=== PATIENT | female | born 1945 | race Caucasian/White ===

== ENCOUNTER → 2018-01-05 13:18 | Outpatient (CLI) | payer MEDICARE, SELFPAY ==
[2018-01-05 14:39] LABS: Alanine Aminotransferase 25 U/L (12-78); Albumin Level 3.9 gm/dL (3.4-5.0); Albumin/Globulin Ratio 1.3 (1.1-1.8); Alkaline Phosphatase 57 U/L (46-116); Anion Gap 11.2 mEq/L (5-15); Aspartate Amino Transferase 15 U/L (15-37); Bilirubin,Total 0.8 mg/dL (0.2-1.0); Blood Urea Nitrogen 21 mg/dL (7-18); Calcium 9.1 mg/dL (8.5-10.1); Carbon Dioxide 30 mmol/L (21.0-32.0); Chloride 104 mmol/L (98-107); Chol/HDL Ratio 5.3 (1-3.5); Cholesterol 291 mg/dL (140-200); Creatinine,Serum 1.22 mg/dL (0.55-1.02); Estimated Glomerular Filt Rate 43 ml/min (>60); Free T4 (Free Thyroxine) 0.79 ng/dl (0.76-1.46); GFR (African American) 52 ML/MIN (>60); Globulin 2.9 gm/dl (1.3-3.2); Glucose 106 mg/dL (74-106); HDL Cholesterol 55 mg/dL (29-89); LDL Cholesterol 211 mg/dL (0-130); Potassium 5.2 mmoL/L (3.5-5.1); Sodium 140 mmol/L (136-145); Thyroid Stimulating Hormone 3.49 uIU/ml (0.358-3.740); Total Protein,Serum 6.8 gm/dL (6.4-8.2); Triglycerides 125 mg/dL (30-200); VLDL Cholesterol 25 mg/dL (0-40)
[2018-01-05 14:53] LABS: Basophils # 0.1 K/mm3 (0-0.2); Basophils % 1.2 % (0.1-2.0); Eosinophils # 0.2 K/mm3 (0.0-0.4); Eosinophils % 3.7 % (0.1-12.0); Hematocrit 39.9 % (37.0-47.0); Hemoglobin 12.7 g/dL (12.2-16.2); Lymphocytes # 1.5 K/mm3 (0.7-4.5); Lymphocytes % 30.3 K/mm3 (10-50); Mean Corpuscular HGB Conc 31.9 g/dL (31.8-35.4); Mean Corpuscular Hemoglobin 28.1 pg (27.0-31.2); Mean Corpuscular Volume 88.2 fl (81-99); Mean Platelet Volume 7.8 fl (7.4-10.4); Monocytes # 0.4 K/mm3 (0.1-1.0); Monocytes % 6.9 % (1.7-9.3); Neutrophils # 2.9 K/mm3 (1.8-7.8); Neutrophils % 57.8 % (37.0-80.0); Platelet Count 220 K/mm3 (142-424); Red Blood Count 4.52 M/mm3 (4.20-5.40); Red Cell Distribution Width 13.2 % (11.5-17.5)
== END ==
PROVIDERS: Visit Provider Nurse Practitioner Family
DX: R53.83 Other fatigue (principal); E78.5 Hyperlipidemia, unspecified; N89.8 Other specified noninflammatory disorders of vagina
CPT/HCPCS: 80053; 80061; 84439; 84443; 85025; 87210

== ENCOUNTER → 2018-02-20 11:03 | Outpatient (REF) | payer MEDICARE, SELFPAY ==
[2018-02-20 14:10] LABS: Amphetamine/Metha Screen,Urine Negative ng/mL (<1000); Barbiturates Screen,Urine Negative ng/mL (<200); Benzodiazepines Screen,Urine Negative ng/mL (200); Cannabinoid Screen,Urine Negative ng/mL (<50); Cocaine Screen,Urine Negative ng/g (<300); Methadone Screen,Urine Negative ng/mL (<300); Opiate Screen,Urine Positive ng/mL (<300); Phencyclidine Screen,Urine Negative ng/mL (<25)
== END ==
LOC: LAB 11:03
PROVIDERS: Visit Provider Emergency Medicine
DX: Z79.899 Other long term (current) drug therapy (principal)
CPT/HCPCS: 80305

== ENCOUNTER → 2018-04-26 14:51 | Outpatient (CLI) | payer MEDICARE, SELFPAY | PROVIDERS: Visit Provider Physician Assistant | DX: R00.2 Palpitations (principal); I10 Essential (primary) hypertension | CPT/HCPCS: 93005 ==

== ENCOUNTER → 2018-05-04 07:57 | Outpatient (CLI) | payer MEDICARE, SELFPAY ==
[2018-05-04 08:02] LABS: Microscopic, Urine URINE MICROSCOPIC (MICROSCOPIC)
[2018-05-04 10:39] LABS: Appearance,Urine CLEAR (Clear); Bilirubin,Urine Negative (Negative); Blood, Urine Negative (Negative); Color,Urine YELLOW (Yellow); Glucose,Urine (UA) Negative (Negative); Ketones,Urine Negative (Negative); Leukocyte Esterase,Urine Negative (Negative); Nitrate,Urine Negative (Negative); Protein,Urine Negative (Negative); Specific Gravity, Urine 1.025 (1.005-1.030); Urobilinogen,Urine 0.2 EU/dl (0.2)
[2018-05-04 10:50] LABS: Albumin Level 3.7 gm/dL (3.4-5.0); Blood Urea Nitrogen 20 mg/dL (7-18); Carbon Dioxide 26 mmol/L (21.0-32.0); Chloride 105 mmol/L (98-107); Creatinine,Serum 1.07 mg/dL (0.55-1.02); Estimated Glomerular Filt Rate 50 ml/min (>60); GFR (African American) 61 ML/MIN (>60); Glucose 136 mg/dL (74-106); Phosphorous 3.9 mg/dL (2.4-4.9); Sodium 140 mmol/L (136-145)
[2018-05-04 11:01] LABS: WBC,Urine Occasional #/hpf (0-3)
[2018-05-04 11:02] LABS: Bacteria,Urine 2+ /lpf
[2018-05-04 11:18] LABS: Creatinine,Urine Random 182 mg/dL (20-320); Total Protein,Urine Random 46.1 mg/dL (0.0-11.9)
[2018-05-05 18:12] LABS: Parathyroid Hormone Intact 38 pg/mL (15-65); Vitamin D 25 Hydroxy 57.9 ng/mL (30.0-100.0)
[2018-05-06 18:29] LABS: Calcium, Ionized 5.4 mg/dL (4.5-5.6)
== END ==
PROVIDERS: Visit Provider Internal Medicine Nephrology
DX: N18.2 Chronic kidney disease, stage 2 (mild) (principal); R82.90 Unspecified abnormal findings in urine
CPT/HCPCS: 36415; 80069; 81001; 82330; 82570; 82652; 83970; 84155; 87086

== ENCOUNTER → 2018-05-07 09:08 | Outpatient (CLI) | payer MEDICARE, SELFPAY ==
--- NOTE | 2018-05-07 | CA_ITS ---
PROCEDURE: 2-D M-mode and color Doppler study INDICATIONS FOR THE TEST: Chest pain+ COPD Heart Murmur+ Tobacco Smoking Palpitations+ Fatigue Syncope Edema Hypertension+Diabetes Mellitus Rheumatic Fever SOB+SANCHEZ+Obesity Hyperlipidemia+ Family History HD+ Additional History dizziness PATIENT INFORMATION HEIGHT: 66 WEIGHT: 146 GENDER: Female B/P: 130/82 2-D/M-MODE INTERPRETATION: 2-D MEASUREMENTS OBSERVED VALUES IN CMS Right Ventricular Dimension (RVDd) 1.7 Interventricular Septum (Thickness)(IVsd) 1.1 Left Ventricular Internal Dimensions(LVIDd) 4.6 Left Ventricular Posterior Wall (Thickness)(LVPWd) 1.1 Aortic Root 2.0 Aortic Cusp Separation 1.5 Left Atrial Dimensions (LAD) 3.4 2D 1. Left atrium is mildly enlarged, left ventricle is normal size, mild concentric left ventricular hypertrophy, visually estimated ejection fraction 55% with no obvious regional wall motion abnormality. 2. The right atrium and right ventricle are normal size and contractility. 3. The aortic valve is minimally thickened and fibrosed. 4. The mitral and tricuspid valve leaflets are minimally thickened. 5. The pulmonic valve is poorly visualized. 6. No significant pericardial effusion noted. DOPPLER INTERROGATION: Doppler interrogation of the aortic, mitral and tricuspid valvular presence of mild aortic, mild mitral and tricuspid regurgitation, tricuspid and jet velocity insufficient for calculation of the right ventricular systolic pressure, diastolic parameters are inconclusive. CONCLUSION: 1. Mildly enlarged left atrium, normal left ventricular size, mild concentric left ventricular hypertrophy, visually estimated ejection fraction 55% with no signal wall motion abnormality. 2. Mild aortic, mild mitral and tricuspid regurgitation 3. No significant pericardial effusion noted.
== END ==
PROVIDERS: Family Provider Emergency Medicine; PCP Internal Medicine Adolescent Medicine; Visit Provider Physician Assistant
DX: R01.1 Cardiac murmur, unspecified (principal); R00.2 Palpitations; I10 Essential (primary) hypertension
CPT/HCPCS: 93005; 93306

== ENCOUNTER → 2018-05-07 13:33 | Outpatient (POV) | payer MEDICARE, SELFPAY | PROVIDERS: Family Provider Emergency Medicine; PCP Internal Medicine Adolescent Medicine; Visit Provider Internal Medicine Nephrology | DX: Z00.00 Encounter for general adult medical examination without abnormal findings (principal) ==

== ENCOUNTER → 2018-05-10 10:10 | Outpatient (CLI) | payer MEDICARE, SELFPAY ==
--- NOTE | 2018-05-10 10:15 | MM_ITS ---
MM Dig screening mamm BI w/CAD CAD Screening COMPARISON: Digital mammograms 04/17/2015 and 12/06/2012 INDICATION: There is a history of breast cancer patient maternal cousin diagnosed before menopause. TECHNIQUE: Standard CC and MLO images were obtained. R2 CAD reviewed. FINDINGS: Prominent diffuse fibroglandular densities are seen throughout both breasts. There are multiple scattered benign-appearing calcifications in each breast. There are mole markers on each breast. There is a small asymmetric density inner quadrant left breast. This was seen previously but appears somewhat more prominent on the current exam. Recommend the patient return for spot compression views and ultrasound for additional evaluation. IMPRESSION: The dense parenchymal pattern with possible developing asymmetric lesion left breast BI-RADS Category: 0 Need Additional Imaging Evaluation RECOMMENDED FOLLOW-UP: IMM - IMMEDIATE FOLLOW-UP RECOMMENDED (A letter has been sent to the patient regarding results of the study.)
--- NOTE | 2018-05-10 10:16 | XR_ITS ---
XR DEXA axial skeleton HISTORY: ITS.REASON: POST MENOPAUSAL ORDERING PHYSICIAN: Silvio Marsh MD PATIENT AGE: 72 years COMPARISON: None FINDINGS: The BMD measured at the left femoral neck is 0.963 g/cm squared with a T score of -0.5. This is considered normal according to the World Health Organization criteria. Fracture risk is low. Treatment is advised. L1-L4 density has a T score of 0.7 which is normal IMPRESSION: Normal bone density. Recommend follow-up exam May 2020
== END ==
PROVIDERS: Family Provider Emergency Medicine; PCP Internal Medicine Adolescent Medicine; Visit Provider Internal Medicine Adolescent Medicine
DX: Z12.31 Encounter for screening mammogram for malignant neoplasm of breast (principal); Z13.820 Encounter for screening for osteoporosis; Z78.0 Asymptomatic menopausal state
CPT/HCPCS: 77067; 77080

== ENCOUNTER → 2018-05-25 12:59 | Outpatient (CLI) | payer MEDICARE, SELFPAY ==
--- NOTE | 2018-05-25 13:05 | MM_ITS ---
MM Dig mamm BI DX w/CAD COMPARISON: Digital bilateral mammograms with CAD 05/10/2008 INDICATION: Possible developing asymmetric density left breast TECHNIQUE: Spot compression MLO and CC views and 90 degrees lateral view FINDINGS: Spot view show that the lesion does not press out and has definitely irregular borders. A few scattered benign-appearing calcifications throughout the breast. Ultrasound exam performed same date showed solid lesion with slightly irregular borders. IMPRESSION: Suspicious asymmetric density left breast along with slightly suspicious findings on targeted ultrasound I believe biopsy is indicated with either stereotactic or ultrasound guidance BI-RADS Category: 4 Suspicious Abnormality-Biopsy Considered RECOMMENDED FOLLOW-UP: BIO - BIOPSY RECOMMENDED (A letter has been sent to the patient regarding results of the study.)
--- NOTE | 2018-05-25 13:06 | US_ITS ---
US breast LT complete COMPARISON: Problem-solving views left breast same date HISTORY: Somewhat suspicious asymmetric density left breast TECHNIQUE: Targeted ultrasound lower inner quadrant FINDINGS: Is a hypoechoic solid lesion at the 8:00 position outer breast measuring 0.4 x 0.5 x 0.2 cm. And shows slightly irregular borders in the ultrasound appearance combined with the irregular asymmetric density on the spot mammogram views is somewhat worrisome and I would recommend biopsy of this lesion which can probably be performed with ultrasound guidance. There are couple normal-appearing nodes in the axilla. IMPRESSION: Suspicious irregular asymmetric lesion on mammogram from to be solid lesion with somewhat irregular borders on ultrasound and recommend follow-up biopsy
== END ==
PROVIDERS: Family Provider Emergency Medicine; PCP Internal Medicine Adolescent Medicine; Visit Provider Internal Medicine Adolescent Medicine
DX: R92.8 Other abnormal and inconclusive findings on diagnostic imaging of breast (principal)
CPT/HCPCS: 76641; 77065

== ENCOUNTER → 2018-06-01 12:01 | Outpatient (CLI) | payer MEDICARE, SELFPAY ==
--- NOTE | 2018-06-01 12:11 | XR_ITS ---
XR KUB HISTORY: ITS.REASON: IBS WITH BOTH CONSTIPATION AND DIARRHEA ORDERING PHYSICIAN: Silvio Marsh MD PATIENT AGE: 72 years COMPARISON: None FINDINGS: There is a moderate amount stool in ascending colon and transverse colon and splenic flexure. There is minimal scattered small bowel gas upper abdomen.. No abnormal calcifications are evident. No obvious renal or ureteral calculi.. No acute bony anomalies evident. There are surgical clips right upper quadrant probably from previous cholecystectomy. IMPRESSION: Negative KUB, no acute finding
== END ==
PROVIDERS: PCP Internal Medicine Adolescent Medicine; Visit Provider Internal Medicine Adolescent Medicine
DX: K58.2 Mixed irritable bowel syndrome (principal)
CPT/HCPCS: 74018

== ENCOUNTER → 2018-06-11 13:24 | Outpatient (CLI) | payer MEDICARE, SELFPAY ==
--- NOTE | 2018-06-11 13:31 | XR_ITS ---
XR knee LT 3V HISTORY: ITS.REASON: LEFT KNEE PAIN ORDERING PHYSICIAN: Simran Crowley PATIENT AGE: 73 years COMPARISON: None FINDINGS: Mild osteoarthritic changes are present at the medial compartment and patellofemoral joint. There is mild chondrocalcinosis of the menisci. No fracture or dislocation. No lytic or blastic change. IMPRESSION: Mild osteoarthritis with chondrocalcinosis
== END ==
PROVIDERS: PCP Nurse Practitioner Family; Visit Provider Nurse Practitioner Family
DX: M25.562 Pain in left knee (principal)
CPT/HCPCS: 73562

== ENCOUNTER → 2018-06-12 08:51 | Outpatient (CLI) | payer MEDICARE, SELFPAY ==
--- NOTE | 2018-06-12 09:30 | US_ITS ---
FNA w guidance, US organ site (breast) HISTORY: Previous abnormal mammogram and ultrasound demonstrated a suspicious hypoechoic nodule at 8:00 along with asymmetric mammogram density in the medial left breast. ITS.REASON: ABNORMAL MAMM ORDERING PHYSICIAN: Silvio Marsh MD PATIENT AGE: 73 years COMPARISON: 05/25/2018 TECHNIQUE: Following obtaining informed consent using aseptic technique and local anesthesia with 1% buffered lidocaine 21-gauge needle was inserted into the nodule of interest and nearly completely aspirated. Only minimal amount fluid was obtained. This was sent to cytology was nondiagnostic. The patient tolerated the procedure well without evidence of immediate complications. Additional views of left breast show the asymmetric density appear to at least partially compress out and is not felt to be significantly changed from an older exam of 2012. IMPRESSION: Sonographic abnormality corresponding to a cyst which was nearly completely aspirated. Recommendations: 6 month mammographic and sonographic follow-up regarding asymmetric density in the left breast
--- NOTE | 2018-06-12 09:30 | MM_ITS ---
MM Dig mamm DX unilat LT CAD INDICATION: Follow-up abnormal mammogram of ORDERING PHYSICIAN: Silvio Marsh MD PATIENT AGE: 73 years COMPARISON: None TECHNIQUE: Problem-solving views left breast FINDINGS: There is heterogeneously dense fibroglandular tissue which decreases the sensitivity of mammography. Asymmetric density is once again noted involving the medial aspect of the left breast. There is some interspersed fat density at this region along with some benign-appearing calcifications. The density is less apparent on the rolled views and is not readily identified is a true nodule on the orthogonal and may represent overlapping fibroglandular tissue. This was similar in appearance compared to older study of 12/06/2012. The patient has a left breast nodule as seen on ultrasound which was subsequently aspirated in the 8:00 region of the left breast. This could contribute to the mammographic abnormality as well. IMPRESSION: Probably benign findings medial left breast. Asymmetric density is felt to represent overlapping fibroglandular tissue along with small left breast cyst. Recommend 6 month mammographic and sonographic follow-up. Also recommend correlation with patient's cytology from the ultrasound-guided FNA BI-RADS Category: 3 Benign Finding Short Term Follow-up RECOMMENDED FOLLOW-UP: 6M - 6 MONTH FOLLOW-UP (A letter has been sent to the patient regarding results of the study.)
== END ==
PROVIDERS: Family Provider Emergency Medicine; PCP Nurse Practitioner Family; Visit Provider Internal Medicine Adolescent Medicine
DX: R92.8 Other abnormal and inconclusive findings on diagnostic imaging of breast (principal); N63.24 Unspecified lump in the left breast, lower inner quadrant
CPT/HCPCS: 10022; 76942; 77065; 88173

== ENCOUNTER → 2018-06-29 11:07 | Outpatient (CLI) | payer MEDICARE, SELFPAY ==
--- NOTE | 2018-06-29 | XR_ITS ---
XR hand RT min 3V HISTORY: Pain ORDERING PHYSICIAN: Ijeoma Lauren MD PATIENT AGE: 73 years COMPARISON: None FINDINGS: Osteoarthritic changes are present at the DIP joints of the second through fourth finger as well as the interphalangeal joint of the thumb. There are multiple cystic areas of the carpal bones involving the scaphoid, lunate, capitate, and radial styloid process. No fracture or dislocation. IMPRESSION: 1. Osteoarthritis. 2. Multiple small cystic areas of the carpal bones of clinical significance. These are fairly well-circumscribed and measure up to 5 mm
--- NOTE | 2018-06-29 11:15 | XR_ITS ---
XR hand LT min 3V HISTORY: Pain ITS.REASON: PT HAS LUPUS..PAIN ORDERING PHYSICIAN: Ijeoma Lauren MD PATIENT AGE: 73 years COMPARISON: None FINDINGS: Osteoarthritic changes involving the DIP joint of the second through fifth digits worse at the third digit with decrease in the joint space and osteophyte formation. No fracture or dislocation evident. There are multiple cystic lesions of the carpal bones with greatest involvement of the scaphoid with cystic areas measuring up to 6 mm. Prominent cystic area is present involving the distal radius at 12 mm. IMPRESSION: 1. Osteoarthritis. 2. Multiple well-defined lucent lesions. Differential diagnosis would include multiple bone cyst, brown tumors, in chondromas, or metastatic disease
--- NOTE | 2018-06-29 11:16 | XR_ITS ---
XR foot RT min 3V HISTORY: Pain ITS.REASON: PT HAD LUPUS..PAIN ALL OVER ORDERING PHYSICIAN: Ijoema Lauren MD PATIENT AGE: 73 years COMPARISON: None FINDINGS: No fracture or dislocation. No lytic or blastic change. There is normal mineralization.. The joint spaces are well-preserved. No significant degenerative/arthritic changes. No erosive changes evident. IMPRESSION: Negative, no acute finding
--- NOTE | 2018-06-29 11:16 | XR_ITS ---
XR foot LT min 3V HISTORY: Pain ORDERING PHYSICIAN: Ijeoma Lauren MD PATIENT AGE: 73 years COMPARISON: None FINDINGS: No fracture or dislocation. No lytic or blastic change. There is normal mineralization.. The joint spaces are well-preserved. No significant degenerative/arthritic changes. There are 2 small cystic areas in the proximal and medial aspect of the proximal phalanx of the third toe. These are nonspecific and measure approximately 2 mm and are questioned clinical significance. Otherwise negative. IMPRESSION: No acute finding. 2 small benign-appearing cystic areas proximal phalanx third toe
[2018-06-29 11:47] LABS: Microscopic, Urine URINE MICROSCOPIC (MICROSCOPIC)
[2018-06-29 12:48] LABS: Appearance,Urine CLEAR (Clear); Basophils # 0.1 K/mm3 (0-0.2); Basophils % 1.8 % (0.1-2.0); Blood, Urine Negative (Negative); Color,Urine YELLOW (Yellow); Eosinophils # 0.2 K/mm3 (0.0-0.4); Eosinophils % 4.2 % (0.1-12.0); Glucose,Urine (UA) Negative (Negative); Hematocrit 40.4 % (37.0-47.0); Hemoglobin 13.2 g/dL (12.2-16.2); Ketones,Urine TRACE (Negative); Leukocyte Esterase,Urine 2+ (Negative); Lymphocytes # 1.6 K/mm3 (0.7-4.5); Lymphocytes % 33.6 K/mm3 (10-50); Mean Corpuscular HGB Conc 32.6 g/dL (31.8-35.4); Mean Corpuscular Hemoglobin 28.2 pg (27.0-31.2); Mean Corpuscular Volume 86.5 fl (81-99); Mean Platelet Volume 6.8 fl (7.4-10.4); Monocytes # 0.4 K/mm3 (0.1-1.0); Monocytes % 8.3 % (1.7-9.3); Neutrophils # 2.5 K/mm3 (1.8-7.8); Neutrophils % 52.1 % (37.0-80.0); Nitrate,Urine Negative (Negative); Platelet Count 253 K/mm3 (142-424); Protein,Urine TRACE (Negative); Red Blood Count 4.67 M/mm3 (4.20-5.40); Specific Gravity, Urine >= 1.030 (1.005-1.030); White Blood Count 4.9 K/mm3 (4.8-10.8)
[2018-06-29 12:55] LABS: Bilirubin,Urine 1+ (Negative)
[2018-06-29 13:36] LABS: Bacteria,Urine 2+ /lpf; Mucus,Urine 1+ /lpf; Squamous Epithelial Cell,Urine 20-50 #/hpf (0-5); WBC,Urine 20-50 #/hpf (0-3)
[2018-06-29 14:11] LABS: Alanine Aminotransferase 23 U/L (12-78); Albumin Level 4.1 gm/dL (3.4-5.0); Albumin/Globulin Ratio 1.2 (1.1-1.8); Alkaline Phosphatase 83 U/L (46-116); Anion Gap 15.4 mEq/L (5-15); Aspartate Amino Transferase 15 U/L (15-37); Bilirubin,Total 0.8 mg/dL (0.2-1.0); Blood Urea Nitrogen 19 mg/dL (7-18); Calcium 9.3 mg/dL (8.5-10.1); Carbon Dioxide 27 mmol/L (21.0-32.0); Chloride 102 mmol/L (98-107); Creatinine,Serum 1.22 mg/dL (0.55-1.02); Estimated Glomerular Filt Rate 43 ml/min (>60); GFR (African American) 52 ML/MIN (>60); Globulin 3.3 gm/dl (1.3-3.2); Glucose 106 mg/dL (74-106); Potassium 4.4 mmoL/L (3.5-5.1); Sodium 140 mmol/L (136-145); Total Protein,Serum 7.4 gm/dL (6.4-8.2)
[2018-06-29 14:13] LABS: Total Protein,Urine Random 85.8 mg/dL (0.0-11.9)
[2018-06-29 14:30] LABS: Creatinine,Urine Random 347 mg/dL (20-320)
[2018-07-01 16:09] LABS: PTT-LA 49.6 sec (0.0-51.9)
[2018-07-02 08:19] LABS: dRVVT Mix 39.2 sec (0.0-47.0)
[2018-07-02 12:55] LABS: Complement C3 137 mg/dL (82-167); Vitamin D 25 Hydroxy 62.1 ng/mL (30.0-100.0)
[2018-07-02 12:56] LABS: dRVVT 48.4 sec (0.0-47.0)
[2018-07-04 08:45] LABS: Anti-Cardiolipin Antibody IgG <9 GPL U/mL (0-14); Anti-DNA (DS) Ab Qn <1 IU/mL (0-9); Lupus Reflex Interpretation Comment: (.)
[2018-07-04 14:48] LABS: Beta-2 Glycoprotein I Ab, IgA <9 (0-25); Beta-2 Glycoprotein I Ab, IgG <9 (0-20)
[2018-07-04 14:49] LABS: Antinuclear Antibodies, IFA Positive (.); Beta-2 Glycoprotein I Ab, IgM <9 (0-32)
== END ==
PROVIDERS: PCP Internal Medicine Adolescent Medicine; Visit Provider Internal Medicine Rheumatology
DX: M32.10 Systemic lupus erythematosus, organ or system involvement unspecified (principal); R82.90 Unspecified abnormal findings in urine
CPT/HCPCS: 36415; 73130; 73630; 80053; 81001; 82570; 82652; 84155; 84443; 85025; 85613; 86038; 86146; 86147; 86161; 86225; 86235; 87086; 87088; 87186

== ENCOUNTER → 2018-07-23 12:56 | Outpatient (POV) | payer MEDICARE, SELFPAY | PROVIDERS: Visit Provider Nurse Practitioner Acute Care | DX: Z00.00 Encounter for general adult medical examination without abnormal findings (principal) ==

== ENCOUNTER → 2018-08-13 11:36 | Outpatient (CLI) | payer MEDICARE, SELFPAY ==
[2018-08-13 11:55] LABS: Alanine Aminotransferase 18 U/L (12-78); Albumin Level 3.6 gm/dL (3.4-5.0); Albumin/Globulin Ratio 1.1 (1.1-1.8); Alkaline Phosphatase 68 U/L (46-116); Anion Gap 10.8 mEq/L (5-15); Aspartate Amino Transferase 15 U/L (15-37); Bilirubin,Total 0.6 mg/dL (0.2-1.0); Blood Urea Nitrogen 17 mg/dL (7-18); Calcium 9.1 mg/dL (8.5-10.1); Carbon Dioxide 28 mmol/L (21.0-32.0); Chloride 107 mmol/L (98-107); Chol/HDL Ratio 2.7 (1-3.5); Cholesterol 149 mg/dL (140-200); Creatine Kinase 103 U/L (26-192); Estimated Glomerular Filt Rate 40 ml/min (>60); GFR (African American) 48 ML/MIN (>60); Globulin 3.4 gm/dl (1.3-3.2); Glucose 97 mg/dL (74-106); HDL Cholesterol 56 mg/dL (29-89); LDL Cholesterol 79 mg/dL (0-130); Potassium 4.8 mmoL/L (3.5-5.1); Sodium 141 mmol/L (136-145); Triglycerides 69 mg/dL (30-200); VLDL Cholesterol 14 mg/dL (0-40)
== END ==
PROVIDERS: PCP Physician Assistant; Visit Provider Physician Assistant
DX: E78.5 Hyperlipidemia, unspecified (principal)
CPT/HCPCS: 36415; 80053; 80061; 82550

== ENCOUNTER → 2018-12-28 10:27 | Outpatient (CLI) | payer MEDICARE, SELFPAY ==
--- NOTE | 2018-12-28 10:40 | XR_ITS ---
XR chest 2V HISTORY: ITS.REASON: COUGH, CHILLS, FEVER ORDERING PHYSICIAN: Simran Crowley PATIENT AGE: 73 years COMPARISON: 02/29/2016 FINDINGS: The cardiomediastinal silhouette and pulmonary vascularity are within normal limits. There is consolidation in the right upper lobe consistent with pneumonia. No effusions are evident. No acute bony findings. IMPRESSION: Right upper lobe pneumonia
[2018-12-28 10:57] LABS: Basophils % 0.6 % (0.1-2.0); Eosinophils # 0.1 K/mm3 (0.0-0.4); Eosinophils % 2.1 % (0.1-12.0); Hematocrit 34.2 % (37.0-47.0); Hemoglobin 11.1 g/dL (12.2-16.2); Lymphocytes # 1.3 K/mm3 (0.7-4.5); Lymphocytes % 23.6 % (10-50); Mean Corpuscular HGB Conc 32.6 g/dL (31.8-35.4); Mean Corpuscular Hemoglobin 27.9 pg (27.0-31.2); Mean Corpuscular Volume 85.6 fl (81-99); Mean Platelet Volume 7.2 fl (7.4-10.4); Monocytes # 0.3 K/mm3 (0.1-1.0); Monocytes % 5.2 % (1.7-9.3); Neutrophils # 3.8 K/mm3 (1.8-7.8); Neutrophils % 68.5 % (37.0-80.0); Platelet Count 216 K/mm3 (142-424); Red Blood Count 3.99 M/mm3 (4.20-5.40); Red Cell Distribution Width 13.4 % (11.5-17.5); White Blood Count 5.5 K/mm3 (4.8-10.8)
[2018-12-28 11:46] LABS: Alanine Aminotransferase 20 U/L (12-78); Albumin Level 3.4 gm/dL (3.4-5.0); Alkaline Phosphatase 67 U/L (46-116); Aspartate Amino Transferase 15 U/L (15-37); Bilirubin,Total 0.6 mg/dL (0.2-1.0); Blood Urea Nitrogen 14 mg/dL (7-18); Carbon Dioxide 28 mmol/L (21.0-32.0); Chloride 104 mmol/L (98-107); Creatinine,Serum 1.24 mg/dL (0.55-1.02); Estimated Glomerular Filt Rate 42 ml/min (>60); GFR (African American) 51 ML/MIN (>60); Globulin 3.3 gm/dl (1.3-3.2); Glucose 101 mg/dL (74-106); Sodium 139 mmol/L (136-145); Total Protein,Serum 6.7 gm/dL (6.4-8.2)
== END ==
PROVIDERS: Visit Provider Nurse Practitioner Family
DX: R05 Cough (principal); R50.9 Fever, unspecified
CPT/HCPCS: 36415; 71046; 80053; 85025

== ENCOUNTER → 2019-03-21 12:27 | Outpatient (CLI) | payer MEDICARE, SELFPAY ==
[2019-03-21 12:37] LABS: Basophils % 0.4 % (0.1-2.0); Eosinophils % 0.4 % (0.1-12.0); Hematocrit 34.4 % (37.0-47.0); Hemoglobin 11.2 g/dL (12.2-16.2); Lymphocytes # 0.8 K/mm3 (0.7-4.5); Lymphocytes % 8.7 % (10-50); Mean Corpuscular HGB Conc 32.7 g/dL (31.8-35.4); Mean Corpuscular Hemoglobin 27.2 pg (27.0-31.2); Mean Corpuscular Volume 83.3 fl (81-99); Mean Platelet Volume 8.5 fl (7.4-10.4); Monocytes # 0.7 K/mm3 (0.1-1.0); Monocytes % 7.8 % (1.7-9.3); Neutrophils # 7.6 K/mm3 (1.8-7.8); Neutrophils % 82.7 % (37.0-80.0); Platelet Count 178 K/mm3 (142-424); Red Blood Count 4.13 M/mm3 (4.20-5.40); Red Cell Distribution Width 13.4 % (11.5-17.5); White Blood Count 9.2 K/mm3 (4.8-10.8)
[2019-03-21 12:50] LABS: Alanine Aminotransferase 20 U/L (12-78); Albumin Level 3.4 gm/dL (3.4-5.0); Albumin/Globulin Ratio 0.9 (1.1-1.8); Alkaline Phosphatase 57 U/L (46-116); Anion Gap 12.3 mEq/L (5-15); Aspartate Amino Transferase 11 U/L (15-37); Bilirubin,Total 1.3 mg/dL (0.2-1.0); Blood Urea Nitrogen 17 mg/dL (7-18); Carbon Dioxide 25 mmol/L (21.0-32.0); Chloride 97 mmol/L (98-107); Creatinine,Serum 1.38 mg/dL (0.55-1.02); Estimated Glomerular Filt Rate 37 ml/min (>60); GFR (African American) 45 ML/MIN (>60); Globulin 3.9 gm/dl (1.3-3.2); Glucose 122 mg/dL (74-106); Potassium 4.3 mmoL/L (3.5-5.1); Sodium 130 mmol/L (136-145); Total Protein,Serum 7.3 gm/dL (6.4-8.2)
== END ==
PROVIDERS: Visit Provider Nurse Practitioner Family
DX: R53.1 Weakness (principal)
CPT/HCPCS: 36415; 80053; 85025

== ENCOUNTER 2019-03-22 17:29 | Inpatient (IN) ==
--- NOTE | 2019-03-22 18:23 | Emergency Department Note ---
ED Disposition Clinical Impression: Bilateral pneumonia, Multiple falls, Facial contusion Disposition: Admitted As Inpatient Condition on Discharge: Fair Referrals: Silvio Marsh MD [Primary Care Provider] - Time of Disposition: 19:38 - Critical Care Critical Care Time: No Attestation: On 03/22/19, the high probability of a clinically significant, sudden or life threatening deterioration of the following system(s) required my full and direct attention, intervention and personal management. The time I documented below is in addition to time spent performing reported procedures but includes the following listed in this critical care notation. Medical Decision Making - Medical Records Medical records reviewed: Yes: I reviewed the patient's medical records. - Toro Inquiry Pt receiving controlled substance: No Toro was queried for this patient: No Vital Signs: 03/22/19 17:28 03/22/19 18:14 Temperature 98.2 F Temperature Source Oral Pulse Rate [Right Radial] 70 67 Respiratory Rate 16 Blood Pressure [Right Arm] 135/61 121/91 H Blood Pressure Mean [Right Arm] 85 101 Blood Pressure Source [Right Arm] Automatic Cuff Blood Pressure Position [Right Arm] Sitting Sitting 02 Sat by Pulse Oximetry 94 L 93 L Oxygen Delivery Method Room Air Room Air - Lab Data Lab results reviewed: Yes: I reviewed the patient's lab results. Lab Results 03/22/19 17:25: WBC 8.5, RBC 3.81 L, Hgb 10.7 L, Hct 30.9 L, MCV 81.1, MCH 28.2, MCHC 34.8, RDW 13.2, Plt Count 177, MPV 7.3 L, Neut % (Auto) 80.2 H, Lymph % (Auto) 9.8 L, [place] % (Auto) 9.3, Eos % (Auto) 0.5, Baso % (Auto) 0.2, Neut # (Auto) 6.8, Lymph # (Auto) 0.8, Crawford # (Auto) 0.8, Eos # (Auto) 0.0, Baso # (Auto) 0.0 03/22/19 17:25: Sodium 124 L, Potassium 4.0, Chloride 93 L, Carbon Dioxide 24, Anion Gap 11.0, BUN 14, Creatinine 1.19 H, Estimated Creat Clear 40, Estimated GFR 44 L, Est GFR ( Amer) 54 L, Glucose 100, Calcium 8.4 L, Magnesium 2.0, Total Bilirubin 1.2 H, AST 14 L D, ALT 21, Alkaline Phosphatase 55, Total Protein 7.0, Albumin 3.2 L, Globulin 3.8 H, Albumin/Globulin Ratio 0.8 L 03/22/19 18:15: Urine Color Yellow, Urine Appearance Clear, Urine pH 6.0, Ur Specific [place] 1.025, Urine Protein 1+, Urine Glucose (UA) Negative, Urine Ketones Negative, Urine Blood Trace-l, Urine Nitrate Negative, Urine Bilirubin Negative, Urine Urobilinogen 0.2, Ur Leukocyte Esterase Negative, Urine RBC 5- 10, Urine WBC Occasional, Ur Squamous Epith Cells 3-5 03/22/19 18:36: Lactate 0.7 Result diagrams: 03/22/19 17:25 03/22/19 17:25 Orders (Tests/Meds): ED MEDICATIONS Generic Name Dose Route Start Last Admin Trade Name Freq PRN Reason Stop Dose Admin Sodium Chloride 1,000 mls @ 999 mls/hr 03/22/19 18:30 03/22/19 19:22 Sod Chlor 0.9% 1000ml Bag IV 03/22/19 19:30 999 mls/hr .Q1H1M ARABELLA Administration Sodium Chloride 1,000 mls @ 999 mls/hr 03/22/19 18:30 03/22/19 19:22 Sod Chlor 0.9% 1000ml Bag IV 03/22/19 19:30 999 mls/hr .Q1H1M ARABELLA Administration ORDERS Category Date Time Status CT facial bones wo con Stat Cat Scan 03/22/19 18:[address] head/brain wo con Stat Cat Scan 03/22/19 18:22 Taken CXR --portable [XR chest portable] Stat Exams 03/22/19 19:23 Taken Pelvis XR 1-2 views [XR pelvis 1-2V] Stat Exams 03/22/19 18:22 Taken Blood Culture Stat Micro 03/22/19 18:23 Received Fall HPI - General Chief Complaint: Fall Stated Complaint: FALL Time Seen by Provider: 03/22/19 18:23 Mode of Arrival: Wheelchair Source of Information: Patient, Significant Other Limitations: No Limitations Description of Symptoms (Recalled from ER Triage Doc. by RN): PT BROUGHT TO ED VIA PRIVATE VEHICLE WITH C/O FALLING OUT OF HER RECLINER AT HOME WHILE REACHING FOR HER REMOTE. PT PRESENTS WITH BRUISING AND SWELLING TO THE RT EYE. FAMIOLY STATES THAT PT HAS BEEN EXPERIENCING INCREASED WEAKNESS OVER THE PAST WEEK AND THAT THEY WERE NOTIFIED YESTERDAY OF SOME ABNORMAL LAB RESULTS AND INFECTION BY HER PCP, BUT STATES HE IS UNSURE OF THE INFECTION. - History of Present Illness HPI Narrative: fever and weakness x 2-3 days/ Several falls. came in from mowing today and found her on the floor. She leaned from her recliner and fell forward to ground - Related Data Home Medications Medication Instructions Recorded Confirmed ergocalciferol (vitamin D2) 2,000 1,000 unit PO DAILY tab 01/05/18 03/22/19 unit tablet loratadine 10 mg tablet 10 mg PO DAILY tab 01/05/18 03/22/19 omega-3 fatty acids 1,000 mg 1,000 mg PO DAILY cap 01/05/18 03/22/19 capsule vitamin B complex tablet 1 tab-cap PO Q24H 01/05/18 03/22/19 Amlodipine Besylate [Norvasc 5mg 5 mg PO DAILY 02/08/18 03/22/19 tablet] Aspirin [Low Dose Aspirin EC] 81 mg PO DAILY 02/08/18 03/22/19 Calcium Carbonate 600 mg PO DAILY 02/08/18 03/22/19 Carvedilol [Carvedilol 25mg Tab] 25 mg PO DAILY 02/08/18 03/22/19 Citalopram Hydrobromide [Celexa] 20 mg PO DAILY 02/08/18 03/22/19 Estradiol 0.5 mg PO DAILY 02/08/18 03/22/19 Hydroxychloroquine Sulfate 200 mg PO BID 02/08/18 03/22/19 [Plaquenil] Isosorbide Mononitrate [Imdur 60mg 60 mg PO QAM 02/08/18 03/22/19 ER tablet] Lisinopril [Prinivil 20mg Tablet] 5 mg PO DAILY 02/08/18 03/22/19 Nefazodone HCl 150 mg PO DAILY 02/08/18 03/22/19 Omeprazole [Omeprazole 20mg 20 mg PO DAILY 02/08/18 03/22/19 Capsule] Potassium Chloride [Micro-K 10mEq 10 meq PO DAILY 02/08/18 03/22/19 cap] Acyclovir [Zovirax] 800 mg PO Q4H 02/12/18 03/22/19 Minocycline HCl 100 mg PO AC 02/12/18 03/22/19 Tramadol HCl [Ultram Take Home 1 mary beth PO ONCE 02/12/18 03/22/19 Pack 50mg (10)] Allergies Allergy/AdvReac Type Severity Reaction Status Date / Time amoxicillin [AMOXICILLIN] Allergy Mild I-RASH Verified 08/21/18 11:35 azithromycin [From ZITHROMAX] Allergy Mild DEPRESSED Verified 08/21/18 11:35 Sulfa (Sulfonamide Allergy Mild I-RASH Verified 08/21/18 11:35 Antibiotics) [SULFA (SULFONAMIDE ANTIBIOTICS)] GENERAL ANESTHETICS Allergy Intermediate VOMITING Uncoded 02/20/18 09:13 [facility] History - Hepatitis A Screen Drug use history?: No High risk sexual behaviors?: No History of sexually transmitted infection?: No Currently employed?: No Childcare worker?: No Do you have indoor plumbing?: Yes Do you have electricity?: Yes Attestation statement:: This patient has been screened for Hepatitis A risk factors. I have reviewed the patient's past medical history: Yes Medical History: Reports:: Gastroesophageal Reflux Disease(GERD), Heart Murmur, Hyperlipidemia, Hypertension, Lung Disease (slight sob), Renal Disease Denies:: Cancer, Diabetes Mellitus Type 1, Diabetes Mellitus Type 2, Internal Pacemaker, MRSA, Seizures Other Medical History: Reports: Arthritis. Denies: Blood Transfusion Reaction Laterality Cases: Bilateral: Carpal Tunnel Release, Tonsillectomy Other Surgeries: Yes: Appendectomy, Cardiac Catheterization, Hysterectomy-Total, Other (fistula, cholecystectomy, lumpectomy L breast, cochlear implants L ear). No: Pacemaker Amputation: No Fractures: No - Social History Smoking Status: Never smoker Tobacco Type: cigarettes, pipe, cigars, e-cigarettes, smokeless tobacco Alcohol Intake: never Substance Use Type: denies use Occupational Status: retired Housing: house - Psychiatric History Expresses thoughts of harming self/others: None Suicide Plan Description: No Plan Family Hx:: Cancer, Hypertension ROS Obtained: Yes All systems reviewed & no additional complaints - Constitutional Constitutional: Reports chills, Reports fever(s), Reports frequent falls - Eyes Eyes: Denies change in vision, Denies eye discharge - ENT Ears, Nose, Mouth, and Throat: Reports dizziness, Denies sinus pressure, Denies sore throat, Denies throat swelling - Cardiovascular Cardiovascular: Denies chest pain, Denies chest pain at rest, Denies diaphoresis, Denies dyspnea - Respiratory Respiratory: Yes cough, No dyspnea, No coughing up blood, No pain on inspiration - Gastrointestinal Gastrointestingal: Denies: abdominal pain, diarrhea, vomiting - Genitourinary Female Genitourinary: Denies dysuria, Denies flank pain - Musculoskeletal Musculoskeletal: Reports joint pain, Denies joint swelling, Reports other (mild left hip) - Integumentary/Breasts Skin/Breast: Denies rash, Denies skin pain - Neurologic Neurologic: Reports unsteadiness, Reports weakness - Hematologic/Lymphatic Henatologic/Lymphatic: Denies easy bleeding, Denies easy bruising Physical Exam - General General appearance: alert, in no apparent distress - Head Head exam: other (R kendall-orbit ecchymosis, no evidence globe rupture) - Eye Eye exam: Present: PERRL, EOMI, periorbital swelling, periorbital tenderness. Absent: normal appearance, scleral icterus, jaundice, conjunctival injection - ENT ENT exam: Present: normal exam - Neck Neck exam: Present: normal inspection, full ROM, trachea midline. Absent: meningismus, lymphadenopathy - Chest Chest inspection: Present: normal inspection, symmetric chest wall rise. Absent: tenderness - Respiratory Respiratory exam: Present: normal lung sounds bilaterally, other (occasional cough, dry.). Absent: respiratory distress - Cardiovascular Cardiovascular exam: Present: regular rate, normal rhythm. Absent: JVD - Abdominal Exam Abdominal exam: Present: soft, normal bowel sounds. Absent: distention, tenderness, guarding - Extremities Exam Extremities exam: Present: normal inspection, full ROM, normal capillary refill, other (mild pain with elevation of left hip. no shortening). Absent: calf tenderness - Back Exam Back exam: Absent: vertebral tenderness - Neurological Exam Neurological exam: Present: alert, oriented X3, CN II-XII intact - Psychiatric Psychiatric exam: Present: normal affect - Skin Skin exam: Present: warm, dry, intact, normal color
[2019-03-22 18:24] LABS: Microscopic, Urine URINE MICROSCOPIC (MICROSCOPIC)
[2019-03-22 18:27] LABS: Appearance,Urine CLEAR (Clear); Bilirubin,Urine Negative (Negative); Blood, Urine TRACE-L (Negative); Color,Urine YELLOW (Yellow); Glucose,Urine (UA) Negative (Negative); Ketones,Urine Negative (Negative); Leukocyte Esterase,Urine Negative (Negative); Protein,Urine 1+ (Negative); Specific Gravity, Urine 1.025 (1.005-1.030); Urobilinogen,Urine 0.2 EU/dl (0.2)
[2019-03-22 18:30] LABS: Basophils % 0.2 % (0.1-2.0); Eosinophils % 0.5 % (0.1-12.0); Hematocrit 30.9 % (37.0-47.0); Hemoglobin 10.7 g/dL (12.2-16.2); Lymphocytes # 0.8 K/mm3 (0.7-4.5); Lymphocytes % 9.8 % (10-50); Mean Corpuscular HGB Conc 34.8 g/dL (31.8-35.4); Mean Corpuscular Hemoglobin 28.2 pg (27.0-31.2); Mean Corpuscular Volume 81.1 fl (81-99); Mean Platelet Volume 7.3 fl (7.4-10.4); Monocytes # 0.8 K/mm3 (0.1-1.0); Monocytes % 9.3 % (1.7-9.3); Neutrophils # 6.8 K/mm3 (1.8-7.8); Neutrophils % 80.2 % (37.0-80.0); Platelet Count 177 K/mm3 (142-424); Red Blood Count 3.81 M/mm3 (4.20-5.40); Red Cell Distribution Width 13.2 % (11.5-17.5); White Blood Count 8.5 K/mm3 (4.8-10.8)
[2019-03-22 18:32] LABS: WBC,Urine Occasional #/hpf (0-3)
[2019-03-22 18:40] LABS: Albumin Level 3.2 gm/dL (3.4-5.0); Albumin/Globulin Ratio 0.8 (1.1-1.8); Bilirubin,Total 1.2 mg/dL (0.2-1.0); Calcium 8.4 mg/dL (8.5-10.1); Globulin 3.8 gm/dl (1.3-3.2)
[2019-03-23 06:34] LABS: Basophils % 0.1 % (0.1-2.0); Eosinophils % 0.2 % (0.1-12.0); Hematocrit 30.6 % (37.0-47.0); Hemoglobin 10.3 g/dL (12.2-16.2); Lymphocytes # 0.3 K/mm3 (0.7-4.5); Lymphocytes % 4.9 % (10-50); Mean Corpuscular HGB Conc 33.8 g/dL (31.8-35.4); Mean Corpuscular Hemoglobin 27.6 pg (27.0-31.2); Mean Corpuscular Volume 81.6 fl (81-99); Mean Platelet Volume 7.1 fl (7.4-10.4); Monocytes # 0.2 K/mm3 (0.1-1.0); Monocytes % 2.6 % (1.7-9.3); Neutrophils # 5.5 K/mm3 (1.8-7.8); Neutrophils % 92.2 % (37.0-80.0); Platelet Count 175 K/mm3 (142-424); Red Blood Count 3.75 M/mm3 (4.20-5.40); Red Cell Distribution Width 13.1 % (11.5-17.5)
[2019-03-23 06:53] LABS: Anion Gap 14.7 mEq/L (5-15); Calcium 8.4 mg/dL (8.5-10.1); Potassium 3.7 mmoL/L (3.5-5.1)
--- NOTE | 2019-03-23 07:38 | History & Physical Report ---
*Admission Date: 03/22/19 *Chief complaint: falls, weakness [facility] History Medical History: Reports:: Deep Vein Thrombosis, Gastroesophageal Reflux Disease(GERD), Heart Murmur, Hyperlipidemia, Hypertension, Lung Disease (slight sob), Renal Disease Denies:: Cancer, Diabetes Mellitus Type 1, Diabetes Mellitus Type 2, Internal Pacemaker, MRSA, Seizures *Have you ever received a pneumonia vaccine?: Yes *Have you received a flu vaccine this season?: Yes Other Medical History: Reports: Arthritis. Denies: Blood Transfusion Reaction Laterality Cases: Right: Total Knee Replacement, Bilateral: Carpal Tunnel Release, Tonsillectomy Other Surgeries: Yes: Appendectomy, Cardiac Catheterization, Colonoscopy, Hysterectomy-Total, Other (fistula, cholecystectomy, lumpectomy L breast, cochlear implants L ear). No: Pacemaker Amputation: No Fractures: No - *Social History Educational Level: Attended High School Smoking Status: Never smoker Tobacco Type: cigarettes, pipe, cigars, e-cigarettes, smokeless tobacco Alcohol Intake: former Substance Use Type: denies use *Occupational Status:: retired Housing: house *Travel in the last 8 weeks: None - Psychiatric History Expresses thoughts of harming self/others: None Suicide Plan Description: No Plan Family Hx:: Cancer, Coronary Artery Disease, Heart Attack Review of Systems - *Neurologic Reports unsteadiness, Reports dizziness, Reports frequent falls, Reports weakness Meds Home Medications Medication Instructions Recorded Confirmed Type ergocalciferol (vitamin D2) 2,000 1,000 unit PO DAILY tab 01/05/18 03/22/19 History unit tablet loratadine 10 mg tablet 10 mg PO DAILY tab 01/05/18 03/22/19 History omega-3 fatty acids 1,000 mg 1,000 mg PO DAILY cap 01/05/18 03/22/19 History capsule vitamin B complex tablet 1 tab-cap PO Q24H 01/05/18 03/22/19 History Amlodipine Besylate [Norvasc 5mg 5 mg PO DAILY 02/08/18 03/22/19 History tablet] Aspirin [Low Dose Aspirin EC] 81 mg PO DAILY 02/08/18 03/22/19 History Calcium Carbonate 600 mg PO DAILY 02/08/18 03/22/19 History Carvedilol [Carvedilol 25mg Tab] 25 mg PO DAILY 02/08/18 03/22/19 History Citalopram Hydrobromide [Celexa] 20 mg PO DAILY 02/08/18 03/22/19 History Estradiol 0.5 mg PO DAILY 02/08/18 03/22/19 History Hydroxychloroquine Sulfate 200 mg PO BID 02/08/18 03/22/19 History [Plaquenil] Isosorbide Mononitrate [Imdur 60mg 60 mg PO QAM 02/08/18 03/22/19 History ER tablet] Lisinopril [Prinivil 20mg Tablet] 5 mg PO DAILY 02/08/18 03/22/19 History Nefazodone HCl 150 mg PO DAILY 02/08/18 03/22/19 History Omeprazole [Omeprazole 20mg 20 mg PO DAILY 02/08/18 03/22/19 History Capsule] Potassium Chloride [Micro-K 10mEq 10 meq PO DAILY 02/08/18 03/22/19 History cap] Acyclovir [Zovirax] 800 mg PO Q4H 02/12/18 03/22/19 History Minocycline HCl 100 mg PO AC 02/12/18 03/22/19 History Allergies Allergy/AdvReac Type Severity Reaction Status Date / Time amoxicillin [AMOXICILLIN] Allergy Mild I-RASH Verified 08/21/18 11:35 azithromycin [From ZITHROMAX] Allergy Mild DEPRESSED Verified 08/21/18 11:35 Sulfa (Sulfonamide Allergy Mild I-RASH Verified 08/21/18 11:35 Antibiotics) [SULFA (SULFONAMIDE ANTIBIOTICS)] GENERAL ANESTHETICS Allergy Intermediate VOMITING Uncoded 02/20/18 09:13 Exam Vital signs and Labs for Last 24 Hours: Temp Pulse Resp BP Pulse Ox 97.9 F 68 20 129/59 L 97 03/23/19 03:54 03/23/19 03:54 03/23/19 03:54 03/23/19 03:54 03/23/19 03:54 Laboratory Results - last 24 hr 03/22/19 17:25: WBC 8.5, RBC 3.81 L, Hgb 10.7 L, Hct 30.9 L, MCV 81.1, MCH 28.2, MCHC 34.8, RDW 13.2, Plt Count 177, MPV 7.3 L, Neut % (Auto) 80.2 H, Lymph % (Auto) 9.8 L, [place] % (Auto) 9.3, Eos % (Auto) 0.5, Baso % (Auto) 0.2, Neut # (Auto) 6.8, Lymph # (Auto) 0.8, [place] # (Auto) 0.8, Eos # (Auto) 0.0, Baso # (Auto) 0.0 03/22/19 17:25: Sodium 124 L, Potassium 4.0, Chloride 93 L, Carbon Dioxide 24, Anion Gap 11.0, BUN 14, Creatinine 1.19 H, Estimated Creat Clear 40, Estimated GFR 44 L, Est GFR ( Amer) 54 L, Glucose 100, Calcium 8.4 L, Magnesium 2.0, Total Bilirubin 1.2 H, AST 14 L D, ALT 21, Alkaline Phosphatase 55, Total Protein 7.0, Albumin 3.2 L, Globulin 3.8 H, Albumin/Globulin Ratio 0.8 L 03/22/19 18:15: Urine Color Yellow, Urine Appearance Clear, Urine pH 6.0, Ur Specific [place] 1.025, Urine Protein 1+, Urine Glucose (UA) Negative, Urine Ketones Negative, Urine Blood Trace-l, Urine Nitrate Negative, Urine Bilirubin Negative, Urine Urobilinogen 0.2, Ur Leukocyte Esterase Negative, Urine RBC 5- 10, Urine WBC Occasional, Ur Squamous Epith Cells 3-5 03/22/19 18:36: Lactate 0.7 03/23/19 06:02: WBC 6.0 D, RBC 3.75 L, Hgb 10.3 L, Hct 30.6 L, MCV 81.6, MCH 27.6, MCHC 33.8, RDW 13.1, Plt Count 175, MPV 7.1 L, Neut % (Auto) 92.2 H, Lymph % (Auto) 4.9 L, [place] % (Auto) 2.6, Eos % (Auto) 0.2, Baso % (Auto) 0.1, Neut # (Auto) 5.5, Lymph # (Auto) 0.3 L, [place] # (Auto) 0.2, Eos # (Auto) 0.0, Baso # (Auto) 0.0 03/23/19 06:02: Sodium 132 L, Potassium 3.7, Chloride 99, Carbon Dioxide 22, Anion Gap 14.7, BUN 13, Creatinine 1.03 H, Estimated Creat Clear 54, Estimated GFR 52 L, Est GFR ( Amer) 63, Glucose 191 H D, Calcium 8.4 L 03/23/19 06:02: B-Natriuretic Peptide 393 H I & O for Last 24 hours: Intake & Output 03/20/19 03/21/19 03/22/19 03/23/19 23:59 23:59 23:59 23:59 Intake Total 404 / 404 Output Total 300 / 300 Balance 104 / 104 Weight 58.513 kg 71.724 kg - *Routine HEENT Exam Head: Present: normocephalic Eye: Present: EOMI, PERRL ENT: Present: mucous membranes moist Comments: Ecchymoses around right eye - *Routine Neck Exam Present: supple, full ROM. Absent: JVD - *Routine Respiratory Exam Present: CTA bilaterally. Absent: accessory muscle use, prolonged expiratory phase, stridor, wheezes - *Routine Cardiovascular Exam Present: RRR, murmur (Systolic murmurs best heard at right upper upper sternal border, left lower sternal border) - *Routine Abdominal Exam Present: soft, normoactive bowel sounds - *Routine Rectal Exam Patient deferred: visual exam - *Routine Exam Patient deferred: external exam - *Routine Extremities Exam Absent: cyanosis, clubbing, edema Comments: Good muscle tone, bilateral midline scars on knees consistent with replacements - *Routine Skin Exam Present: intact. Absent: cyanosis, erythema - *Routine Neurological Exam Present: alert, oriented X3. Absent: altered mental status Assessment and Plan (1) Mitral and aortic insufficiency Current visit: Yes Status: Chronic Category: Medical Code(s): I08.0 - Rheumatic disorders of both mitral and aortic valves Echo from May 2018 with mild mitral, aortic, tricuspid insufficiency and regurg. We will repeat echocardiogram today given bilateral "pneumonia". Additionally with patient's falls and complaint of chest pressure over the past few weeks, concern for worsening valvular disease or cardiac dysfunction. Further management pending results. (2) Hyponatremia Current visit: Yes Status: Acute Category: Medical Code(s): E87.1 - Hypo- osmolality and hyponatremia Unclear etiology at this time, suspect component of dehydration with her syncopal episode and fatigue in the setting of normal kidney function however. Improving with fluid rehydration. Continue to monitor with morning labs (3) Bilateral pneumonia Current visit: Yes Status: Acute Qualifiers: Pneumonia type: due to unspecified organism Lung location: upper lobe of lung Qualified Code(s): J18.1 - Lobar pneumonia, unspecified organism Category: Medical Code(s): J18.9 - Pneumonia, unspecified organism Concern for bilateral lower lobe and right upper lobe pneumonia on imaging. Initiated on antibiotics. Continue as ordered. Sputum culture pending. (4) Facial contusion Current visit: Yes Status: Acute Category: Medical Code(s): S00.83XA - Contusion of other part of head, initial encounter (5) Chronic kidney disease, stage 3, mod decreased GFR Current visit: Yes Status: Chronic Category: Medical Code(s): N18.3 - Chronic kidney disease, stage 3 (moderate) (6) Essential hypertension Current visit: Yes Status: Acute Category: Medical Code(s): I10 - Essential (primary) hypertension - Assessment and plan all Dx Assessment and Plan for all problems:: Medications per outpatient record: Taking Vitamin B12 1000 mcg tablet 1 tab(s) orally once a day Taking Vitamin D3 1000 intl units tablet 1 tab(s) orally once a day Taking multivitamin Multiple Vitamins tablet 1 tab(s) orally once a day Taking Fish Oil 1000 mg capsule 1 cap(s) orally twice daily Taking Calcium 600+D 600 mg-800 intl units tablet 1 tab(s) orally 2 times a day Taking ClearLax - powder for reconstitution orally once a day Taking Co Q-10 100 mg capsule 1 cap(s) orally once a day, Taking amlodipine 5 mg tablet 1 tab(s) orally twice daily Taking citalopram 40 mg tablet 1/2 tab(s) orally once a day Taking Zyrtec 10 mg tablet 1 tab(s) orally once a day Taking aspirin 81 mg tablet 1 tab(s) orally once a day Taking Konsyl 3.4 g/11 g powder for reconstitution as directed orally once daily Taking Probiotic Formula (Bacillus Coagulans) - capsule 1 cap(s) orally once a day Taking lisinopril 5 mg tablet 1 tab(s) orally once a day Taking furosemide 40 mg tablet 1 tab(s) orally once a day prn Taking Tylenol 8 HR Arthritis Pain 650 mg tablet, extended release 2 tab(s) orally every 8 hours Taking Vitamin C 250 mg tablet 1 tab(s) orally once a day Taking potassium chloride 10 mEq capsule, extended release 1 cap(s) orally 2 times a day Taking hydroxychloroquine 200 mg tablet 1 tab(s) orally twice daily Taking carvedilol 12.5 mg tablet 1/2 tab(s) orally 2 times a day Taking nefazodone 150 mg tablet 1 tab(s) orally once daily Taking omeprazole 20 mg delayed release capsule 1 cap(s) orally once a day Taking rosuvastatin 10 mg tablet TAKE 1 TABLET ONE TIME DAILY AT BEDTIME
[2019-03-23 08:58] LABS: Lymphocytes % 4 % (10-50); Monocytes % 2 % (2-9); Neutrophils % 92 % (42-76); Total Cells Counted 100
--- NOTE | 2019-03-23 09:59 | Pharmacy Consult Notes ---
[facility] Pharmacy VTE Monitoring - Patient Demographics Admission date: 03/22/19 Report Date: 03/23/19 Time: 09:59 Allergies/Adverse Reactions: Patient Allergies amoxicillin [AMOXICILLIN] Allergy (Mild, Verified 08/21/18 11:35) I-RASH azithromycin [From ZITHROMAX] Allergy (Mild, Verified 08/21/18 11:35) DEPRESSED Sulfa (Sulfonamide Antibiotics) [SULFA (SULFONAMIDE ANTIBIOTICS)] Allergy (Mild, Verified 08/21/18 11:35) I-RASH GENERAL ANESTHETICS Allergy (Intermediate, Uncoded 02/20/18 09:13) VOMITING Height: 1.57 m Weight: 71.724 kg Patient Problems: Current Active Problems (Updated 03/22/19 @ 19:43 by Jean Pierre Cespedes MD) Bilateral pneumonia (Acute) Multiple falls (Acute) Facial contusion (Acute) - VTE Risk Labs: VTE Related Lab Results Hgb 10.3 g/dL (12.2-16.2) L 03/23/19 06:02 Hct 30.6 % (37.0-47.0) L 03/23/19 06:02 Plt Count 175 K/mm3 (142-424) 03/23/19 06:02 BUN 13 mg/dL (7-18) 03/23/19 06:02 Creatinine 1.03 mg/dL (0.55-1.02) H 03/23/19 06:02 Estimated Creat Clear 54 mL/min (50-200) 03/23/19 06:02 Was VTE Risk Assessment Performed: Yes VTE Score: 7 VTE Risk Level: Moderate Risk - Prophylaxis VTE Prophylaxis Ordered?: Yes Types of VTE Prophylaxis: TEDS Knee High Location of Applied Device: Bilateral Lower Extremeties - VTE Diagnosis Confirmed Treatment or plan recommended: Continue Current Treatment
[2019-03-24 06:45] LABS: Albumin Level 2.7 gm/dL (3.4-5.0); Albumin/Globulin Ratio 0.7 (1.1-1.8); Anion Gap 14.7 mEq/L (5-15); Bilirubin,Total 0.6 mg/dL (0.2-1.0); Calcium 8.6 mg/dL (8.5-10.1); Globulin 3.8 gm/dl (1.3-3.2); Phosphorous 2.8 mg/dL (2.4-4.9); Potassium 3.7 mmoL/L (3.5-5.1); Total Protein,Serum 6.5 gm/dL (6.4-8.2)
--- NOTE | 2019-03-24 08:48 | Progress Note ---
Internal Medicine - PN: Subj *Date: 03/24/19 *Time: 08:47 Interval history: Patient continues to feel very weak, is minimally disoriented to time, and does not think that her legs are strong enough to support her when she walks this morning. Exam Vital signs and Labs for Last 24 Hours: Temp Pulse Resp BP Pulse Ox 98.3 F 64 22 147/55 H 92 L 03/24/19 07:34 03/24/19 07:34 03/24/19 07:34 03/24/19 07:34 03/24/19 08:05 Laboratory Results - last 24 hr 03/23/19 06:02: Total Counted 100, Neutrophils % (Manual) 92 H, Band Neutrophils % 2.0, Lymphocytes % (Manual) 4 L, Monocytes % (Manual) 2, Platelet Estimate Normal 03/23/19 07:27: Stl Aeromonas (PCR) Not detected, Stl C. cayetanensis PCR Not detected, Stool Rotavirus (PCR) Not detected, Stl Adenov F 40/41 PCR Not detected, Stool Astrovirus (PCR) Not detected, Stool Campylobacter PCR Not detected, Stl C.difficile Tox PCR Not detected, Stool Cryptosporidium PCR Not detected, Stl E.coli Shiga Tox PCR Not detected, Stool E coli O157 PCR Not detected, Stl Enterotoxigenic E PCR Not detected, Stool EPEC (PCR) Not detected, Stool EAEC (PCR) Not detected, Stl E. histolytica PCR Not detected, Stool Giardia Lamblia PCR Not detected, Stool Salmonella PCR Not detected, Stool Sapovirus (PCR) Not detected, Stl P. shigelloides PCR Not detected, Stl Shigella/EIEC PCR Not detected, St Y.enterocolitica PCR Not detected, Stool Vibrio (PCR) Not detected, Stl Vibrio cholerae PCR Not detected, Stl Norovirus GI/GII PCR Not detected 03/23/19 10:35: Troponin I < 0.02 03/24/19 06:07: Sodium 134 L, Potassium 3.7, Chloride 101, Carbon Dioxide 22, Anion Gap 14.7, BUN 15, Creatinine 0.93, Estimated Creat Clear 55, Estimated GFR 59, Est GFR ( Amer) 71, Glucose 227 H, Calcium 8.6, Phosphorus 2.8, Magnesium 2.2, Total Bilirubin 0.6, AST 17, ALT 25, Alkaline Phosphatase 56, Total Protein 6.5, Albumin 2.7 L, Globulin 3.8 H, Albumin/Globulin Ratio 0.7 L I & O for Last 24 hours: Intake & Output 03/21/19 03/22/19 03/23/19 03/24/19 11:59 11:59 11:59 11:59 Intake Total 404 / 404 1680 / 1680 Output Total 300 / 300 300 / 300 Balance 104 / 104 1380 / 1380 Weight 158 lb 2 oz 155 lb Narrative: Patient is pleasant. Alert. Follows commands. Ecchymosis around right orbital area unchanged. No pupillary reactivity issues. No yellow scleral changes. Lungs have rhonchi and crackles in both bases. Heart rate regular. Abdomen soft. No edema noted. Legs are weak but symmetrically so. Assessment and Plan (1) Mitral and aortic insufficiency Current visit: Yes Status: Chronic Category: Medical Code(s): I08.0 - Rheumatic disorders of both mitral and aortic valves (2) Hyponatremia Current visit: Yes Status: Acute Category: Medical Code(s): E87.1 - Hypo- osmolality and hyponatremia (3) Bilateral pneumonia Current visit: Yes Status: Acute Qualifiers: Pneumonia type: due to unspecified organism Lung location: upper lobe of lung Qualified Code(s): J18.1 - Lobar pneumonia, unspecified organism Category: Medical Code(s): J18.9 - Pneumonia, unspecified organism (4) Facial contusion Current visit: Yes Status: Acute Category: Medical Code(s): S00.83XA - Contusion of other part of head, initial encounter (5) Chronic kidney disease, stage 3, mod decreased GFR Current visit: Yes Status: Chronic Category: Medical Code(s): N18.3 - Chronic kidney disease, stage 3 (moderate) (6) Essential hypertension Current visit: Yes Status: Acute Category: Medical Code(s): I10 - Essential (primary) hypertension - Assessment and plan all Dx Assessment and Plan for all problems:: Continue current antibiotic therapy. Continue supportive care. PT/OT evaluation. Patient has taken a significant functional decline over the past couple of days, I think she would be a good candidate for skilled rehab. Continue to treat pneumonia. Await echo report.
[2019-03-25 06:04] LABS: Eosinophils % 0.1 % (0.1-12.0); Hematocrit 32.4 % (37.0-47.0); Hemoglobin 10.8 g/dL (12.2-16.2); Lymphocytes # 0.4 K/mm3 (0.7-4.5); Lymphocytes % 3.2 % (10-50); Mean Corpuscular HGB Conc 33.4 g/dL (31.8-35.4); Mean Corpuscular Hemoglobin 27.4 pg (27.0-31.2); Mean Corpuscular Volume 82.2 fl (81-99); Mean Platelet Volume 6.9 fl (7.4-10.4); Monocytes # 0.5 K/mm3 (0.1-1.0); Monocytes % 4.1 % (1.7-9.3); Neutrophils # 11.8 K/mm3 (1.8-7.8); Neutrophils % 92.5 % (37.0-80.0); Platelet Count 271 K/mm3 (142-424); Red Blood Count 3.94 M/mm3 (4.20-5.40); Red Cell Distribution Width 13.5 % (11.5-17.5); White Blood Count 12.8 K/mm3 (4.8-10.8)
[2019-03-25 06:13] LABS: Albumin Level 2.8 gm/dL (3.4-5.0); Albumin/Globulin Ratio 0.8 (1.1-1.8); Anion Gap 13.7 mEq/L (5-15); Bilirubin,Total 0.6 mg/dL (0.2-1.0); Calcium 8.5 mg/dL (8.5-10.1); Globulin 3.4 gm/dl (1.3-3.2); Potassium 3.7 mmoL/L (3.5-5.1); Total Protein,Serum 6.2 gm/dL (6.4-8.2)
--- NOTE | 2019-03-25 08:01 | Progress Note ---
Internal Medicine - PN: Subj *Date: 03/25/19 *Time: 07:59 Interval history: Patient is alert, pleasant, however continues to exhibit some flight of ideas with some tangential thinking and dementia type behaviors. She has been very weak over the last 24 hours. Nursing reports that she continues to try to get up out of bed by herself even though she is repetitively instructed not to do so. Exam Vital signs and Labs for Last 24 Hours: Temp Pulse Resp BP Pulse Ox 98.0 F 74 17 161/62 H 96 03/25/19 04:00 03/25/19 04:00 03/25/19 04:00 03/25/19 04:00 03/25/19 04:00 Laboratory Results - last 24 hr 03/25/19 05:23: WBC 12.8 H D, RBC 3.94 L, Hgb 10.8 L, Hct 32.4 L, MCV 82.2, MCH 27.4, MCHC 33.4, RDW 13.5, Plt Count 271 D, MPV 6.9 L, Neut % (Auto) 92.5 H, Lymph % (Auto) 3.2 L, [place] % (Auto) 4.1, Eos % (Auto) 0.1, Baso % (Auto) 0.0 L, Neut # (Auto) 11.8 H, Lymph # (Auto) 0.4 L, [place] # (Auto) 0.5, Eos # (Auto) 0.0, Baso # (Auto) 0.0 03/25/19 05:23: Sodium 136, Potassium 3.7, Chloride 102, Carbon Dioxide 24, Anion Gap 13.7, BUN 13, Creatinine 0.95, Estimated Creat Clear 54, Estimated GFR 58 L, Est GFR ( Amer) 70, Glucose 248 H, Calcium 8.5, Total Bilirubin 0.6, AST 16, ALT 28, Alkaline Phosphatase 57, Total Protein 6.2 L, Albumin 2.8 L , Globulin 3.4 H, Albumin/Globulin Ratio 0.8 L I & O for Last 24 hours: Intake & Output 03/22/19 03/23/19 03/24/19 03/25/19 11:59 11:59 11:59 11:59 Intake Total 404 / 404 1830 / 1830 1293 / 1293 Output Total 300 / 300 300 / 300 Balance 104 / 104 1530 / 1530 1293 / 1293 Weight 158 lb 2 oz 155 lb 153 lb 2 oz Microbiology Reports for the Last 24 Hours: Microbiology 03/22/19 18:23 Blood Blood Culture - Preliminary NO GROWTH AFTER 48 HOURS 03/22/19 18:23 Blood Blood Culture - Preliminary NO GROWTH AFTER 48 HOURS Narrative: Right orbital ecchymosis has faded somewhat. Heart rate regular. Anterior lung [place] are clear, minimal rhonchi in the bases. Abdomen soft and nontender. No edema noted. Assessment and Plan (1) Mitral and aortic insufficiency Current visit: Yes Status: Chronic Category: Medical Code(s): I08.0 - Rheumatic disorders of both mitral and aortic valves (2) Hyponatremia Current visit: Yes Status: Acute Category: Medical Code(s): E87.1 - Hypo- osmolality and hyponatremia (3) Bilateral pneumonia Current visit: Yes Status: Acute Qualifiers: Pneumonia type: due to unspecified organism Lung location: upper lobe of lung Qualified Code(s): J18.1 - Lobar pneumonia, unspecified organism Category: Medical Code(s): J18.9 - Pneumonia, unspecified organism (4) Facial contusion Current visit: Yes Status: Acute Category: Medical Code(s): S00.83XA - Contusion of other part of head, initial encounter (5) Chronic kidney disease, stage 3, mod decreased GFR Current visit: Yes Status: Chronic Category: Medical Code(s): N18.3 - Chronic kidney disease, stage 3 (moderate) (6) Essential hypertension Current visit: Yes Status: Acute Category: Medical Code(s): I10 - Essential (primary) hypertension (7) Anemia, chronic disease Current visit: Yes Status: Acute Category: Medical Code(s): D63.8 - Anemia in other chronic diseases classified elsewhere - Assessment and plan all Dx Assessment and Plan for all problems:: Overall pneumonia improving. Stop steroids. Care management evaluation for [facility] evaluation for weakness/PT/OT issues.
[2019-03-25 08:54] LABS: Lymphocytes % 3 % (10-50); Monocytes % 4 % (2-9); Neutrophils % 90 % (42-76); RBC Morphology Normal; Total Cells Counted 100
--- NOTE | 2019-03-25 13:37 | Discharge Summary ---
General - General Admission date:: 03/22/19 Discharge date: 03/25/19 HPI HPI: 73-year-old white female who fell at home, came to the emergency department, found to have pneumonia as well as increasing functional decline issues, overall medical fragility and increasing problems with dementia. She was admitted to hospital for further testing and IV antibiotics. Hospital Course Hospital Course: Patient was admitted, placed on intravenous levofloxacin, tolerated this well. She improved from a functional perspective with less weakness but continued to require significant assistance with ambulation. PT/OT evaluated her and felt she would benefit from home health, the subject of long-term care came up but her was adamant that he would be able to care for her at home in association with home health. She will be discharged home today with levofloxacin Rx as an outpatient, continued other medications and home health referral. Patient cannot leave her house without some difficulty, does qualify for home health for physical therapy need. Please note that with her increasing memory issues we will begin Aricept today and follow this up in the office. Objective Vital signs: Temp Pulse Resp BP Pulse Ox 98.3 F 70 17 153/71 H 94 L 03/25/19 11:18 03/25/19 11:18 03/25/19 11:18 03/25/19 11:18 03/25/19 11:18 Narrative: Ecchymosis around right orbit noted. Has improved over the last several days. Patient is awake and alert, disoriented to time, has significant tangential thinking as previously noted. Lungs have rhonchi in the bases but good air movement. Heart rate regular. No significant edema. Able to move arms and legs well. Please see PT note for detailed functional status. Results Labs on day of discharge: Labs from last 24 hours 03/25/19 03/25/19 05:23 05:23 WBC 12.8 H D RBC 3.94 L Hgb 10.8 L Hct 32.4 L MCV 82.2 MCH 27.4 MCHC 33.4 RDW 13.5 Plt Count 271 D MPV 6.9 L Neut % (Auto) 92.5 H Lymph % (Auto) 3.2 L [place] % (Auto) 4.1 Eos % (Auto) 0.1 Baso % (Auto) 0.0 L Neut # (Auto) 11.8 H Lymph # (Auto) 0.4 L [place] # (Auto) 0.5 Eos # (Auto) 0.0 Baso # (Auto) 0.0 Total Counted 100 Neutrophils % (Manual) 90 H Band Neutrophils % 3.0 Lymphocytes % (Manual) 3 L Monocytes % (Manual) 4 Platelet Estimate Normal RBC Morphology Normal Sodium 136 Potassium 3.7 Chloride 102 Carbon Dioxide 24 Anion Gap 13.7 BUN 13 Creatinine 0.95 Estimated Creat Clear 54 Estimated GFR 58 L Est GFR ( Amer) 70 Glucose 248 H Calcium 8.5 Total Bilirubin 0.6 AST 16 ALT 28 Alkaline Phosphatase 57 Total Protein 6.2 L Albumin 2.8 L Globulin 3.4 H Albumin/Globulin Ratio 0.8 L Preliminary micro results at discharge 03/22/19 18:23 Blood Culture - Preliminary Blood NO GROWTH AFTER 48 HOURS 03/22/19 18:23 Blood Culture - Preliminary Blood NO GROWTH AFTER 48 HOURS DS: Diagnosis - Discharge Diagnosis (1) Mitral and aortic insufficiency Status: Chronic (2) Hyponatremia Status: Resolved (3) Bilateral pneumonia Status: Acute (4) Facial contusion Status: Acute (5) Chronic kidney disease, stage 3, mod decreased GFR Status: Chronic (6) Essential hypertension Status: Chronic (7) Anemia, chronic disease Status: Chronic (8) Memory loss Status: Chronic Discharge Plan - Patient Discharge Instructions ACTIVITY: Continue current activity DIET: continue same diet Patient Instructions: DI for Pneumonia -- Adult - Follow up Plan Follow up with: Silvio Marsh MD [Primary Care Provider] - 03/29/19 Unknown provider or service follow up:: 03/25/19 13:37 Home health for PT/OT/home safety evaluation Disposition: Home Health Service Home Medications: Home Medications Medication Instructions Recorded Confirmed Type ergocalciferol (vitamin D2) 2,000 1,000 unit PO DAILY tab 01/05/18 03/22/19 History unit tablet omega-3 fatty acids 1,000 mg 1,000 mg PO DAILY cap 01/05/18 03/22/19 History capsule vitamin B complex tablet 1 tab-cap PO Q24H 01/05/18 03/22/19 History Amlodipine Besylate [Norvasc 5mg 5 mg PO BID 02/08/18 03/23/19 History tablet] Aspirin [Low Dose Aspirin EC] 81 mg PO DAILY 02/08/18 03/22/19 History Calcium Carbonate 600 mg PO BID 02/08/18 03/23/19 History Citalopram Hydrobromide [Celexa] 20 mg PO DAILY 02/08/18 03/22/19 History Lisinopril [Prinivil 20mg Tablet] 5 mg PO DAILY 02/08/18 03/22/19 History Nefazodone HCl 150 mg PO DAILY 02/08/18 03/22/19 History Omeprazole [Omeprazole 20mg 20 mg PO DAILY 02/08/18 03/22/19 History Capsule] Potassium Chloride [Micro-K 10mEq 10 meq PO BID 02/08/18 03/23/19 History cap] Acetaminophen [Tylenol 8 Hour] 650 mg PO TIDP PRN 03/23/19 03/23/19 History Ascorbic Acid [Vitamin C] 250 mg PO DAILY 03/23/19 03/23/19 History Bacillus Coagulans [Probiotic] 1 each PO DAILY 03/23/19 03/23/19 History Carvedilol [Carvedilol 12.5mg Tab] 6.25 mg PO BID 03/23/19 03/23/19 History Cetirizine HCl [Zyrtec] 10 mg PO DAILY 03/23/19 03/23/19 History Furosemide [Furosemide 40MG tAB] 40 mg PO DAILYP PRN 03/23/19 03/23/19 History Hydroxychloroquine Sulfate 200 mg PO BID 03/23/19 03/23/19 History [Plaquenil 200mg tablet] Multivitamin [Multivitamins] 1 each PO DAILY 03/23/19 03/23/19 History Polyethylene Glycol 3350 [Clearlax] 119 gm PO DAILY 03/23/19 03/23/19 History Psyllium Husk (with Sugar) [Konsyl 3.4 gm PO DAILY 03/23/19 03/23/19 History Psyllium Fiber Packet] Rosuvastatin Calcium 10 mg PO HS 03/23/19 03/23/19 History Ubidecarenone/Vit E Acet [Co Q-10 1 each PO DAILY 03/23/19 03/23/19 History 100 mg Softgel] Donepezil HCl [Aricept 5mg 5 mg PO DAILY #30 tab 03/25/19 Rx Tablet] levoFLOXacin [Levaquin 500mg 500 mg PO DAILY #7 tab 03/25/19 Rx tab] Prescriptions/Medication Reconciliation: New Donepezil HCl [Aricept 5mg Tablet] 5 mg PO DAILY #30 tab levoFLOXacin [Levaquin 500mg tab] 500 mg PO DAILY #7 tab Continued ergocalciferol (vitamin D2) 2,000 unit tablet 1,000 unit PO DAILY tab omega-3 fatty acids 1,000 mg capsule 1,000 mg PO DAILY cap vitamin B complex tablet 1 tab-cap PO Q24H Amlodipine Besylate [Norvasc 5mg tablet] 5 mg PO BID Potassium Chloride [Micro-K 10mEq cap] 10 meq PO BID Omeprazole [Omeprazole 20mg Capsule] 20 mg PO DAILY Citalopram Hydrobromide [Celexa] 20 mg PO DAILY Calcium Carbonate 600 mg PO BID Aspirin [Low Dose Aspirin EC] 81 mg PO DAILY Furosemide [Furosemide 40MG tAB] 40 mg PO DAILYP PRN PRN Reason: FLUID Cetirizine HCl [Zyrtec] 10 mg PO DAILY Ubidecarenone/Vit E Acet [Co Q-10 100 mg Softgel] 1 each PO DAILY Polyethylene Glycol 3350 [Clearlax] 119 gm PO DAILY Multivitamin [Multivitamins] 1 each PO DAILY Bacillus Coagulans [Probiotic] 1 each PO DAILY Ascorbic Acid [Vitamin C] 250 mg PO DAILY Hydroxychloroquine Sulfate [Plaquenil 200mg tablet] 200 mg PO BID Lisinopril [Prinivil 20mg Tablet] 5 mg PO DAILY Nefazodone HCl 150 mg PO DAILY Rosuvastatin Calcium 10 mg PO HS Psyllium Husk (with Sugar) [Konsyl Psyllium Fiber Packet] 3.4 gm PO DAILY Acetaminophen [Tylenol 8 Hour] 650 mg PO TIDP PRN PRN Reason: PAIN Carvedilol [Carvedilol 12.5mg Tab] 6.25 mg PO BID
--- NOTE | 2019-03-25 19:48 | Cardiology Report ---
PROCEDURE: 2-D M-mode and color Doppler study INDICATIONS FOR THE TEST: Chest pain COPD Heart Murmur+ Tobacco Smoking Palpitations+ Fatigue+ Syncope Edema Hypertension+Diabetes Mellitus Rheumatic Fever SOB+SANCHEZ+Obesity Hyperlipidemia+ Family History HD+ Additional History falls, pneumonia, weakness, hx of MR and AI PATIENT INFORMATION HEIGHT: 62 WEIGHT: 158 GENDER: Female B/P: 129/59 2-D/M-MODE INTERPRETATION: 2-D MEASUREMENTS OBSERVED VALUES IN CMS Right Ventricular Dimension (RVDd) 1.7 Interventricular Septum (Thickness)(IVsd) 1.4 Left Ventricular Internal Dimensions(LVIDd) 4.3 Left Ventricular Posterior Wall (Thickness)(LVPWd) 1.4 Aortic Root 2.1 Aortic Cusp Separation 1.0 Left Atrial Dimensions (LAD) 4.3 2D 1. Left atrium is mildly enlarged, left ventricle is normal size, mild concentric left ventricular hypertrophy, visually estimated ejection fraction 55% with no regional wall motion abnormality. 2. The right atrium and right ventricle are normal size and contractility. 3. The aortic valve is thickened and calcified leaflet continue to display mobility. 4. The mitral valve leaflets are minimally thickened, there is mitral annular calcification present. 5. The tricuspid valve is grossly normal. 6. The pulmonic valve is poorly visualized 7. No significant pericardial effusion noted. DOPPLER INTERROGATION: 1. The maximum aortic out flow velocity recorded study 2.35 m/s, resulting in a mean gradient across the aortic valve of 11 mmHg, represents mild aortic stenosis, there is moderate aortic insufficiency. 2. The mitral inflow velocities within normal range, there is no mitral stenosis, there is moderate to severe mitral regurgitation, grade 2 diastolic dysfunction seen with tissue Doppler evidence of raised left atrial pressure. 3. Mild tricuspid regurgitation noted, tricuspid regurgitation jet velocity is inadequate for calculation of the right ventricular systolic pressure. Inferior vena cava is not well visualized. CONCLUSION: 1. Mildly enlarged left atrium, normal left ventricular size, mild concentric left ventricular hypertrophy, visually estimated ejection fraction 55% with no regional wall motion abnormality. Grade 2 diastolic dysfunction seen with tissue Doppler evidence of raised left atrial pressure. 2. Thickened and calcified aortic valve without aortic stenosis, there is moderate aortic insufficiency present. 3. Moderate to severe mitral and mild tricuspid regurgitation, tricuspid regurgitation jet velocity is inadequate for calculation of the right ventricular systolic pressure. 4. No significant pericardial effusion noted.
== END 2019-03-25 14:15 | disposition home health service (06) | DRG 194 ==
LOC: 2ND 17:29 → ER 17:29 → OBSVTOIN 21:07 → 2ND 21:08
PROVIDERS: ADMIT Emergency Medicine; ATTEND Internal Medicine Adolescent Medicine
CPT/HCPCS: 36415; 70450; 70486; 71010; 71045; 72170; 80048; 80053; 81001; 83605; 83735; 83880; 84100; 84484; 85007; 85025; 87040; 87507; 93005; 93306; 94640; 96365; 96366; 96375; 97161; 97165; 99284; J1956; J2405

== ENCOUNTER → 2019-05-25 07:54 | Outpatient (CLI) | payer MEDICARE, SELFPAY | PROVIDERS: Visit Provider Internal Medicine Nephrology | DX: N18.2 Chronic kidney disease, stage 2 (mild) (principal) ==

== ENCOUNTER → 2019-05-27 09:12 | Outpatient (CLI) | payer MEDICARE, SELFPAY ==
[2019-05-27 09:31] LABS: Basophils # 0.1 K/mm3 (0-0.2); Basophils % 1.6 % (0.1-2.0); Eosinophils # 0.2 K/mm3 (0.0-0.4); Eosinophils % 4.2 % (0.1-12.0); Hematocrit 39.1 % (37.0-47.0); Hemoglobin 12.2 g/dL (12.2-16.2); Lymphocytes # 1.4 K/mm3 (0.7-4.5); Lymphocytes % 28.7 % (10-50); Mean Corpuscular HGB Conc 31.1 g/dL (31.8-35.4); Mean Corpuscular Hemoglobin 26.1 pg (27.0-31.2); Mean Corpuscular Volume 83.9 fl (81-99); Mean Platelet Volume 7.1 fl (7.4-10.4); Monocytes # 0.3 K/mm3 (0.1-1.0); Monocytes % 6.2 % (1.7-9.3); Neutrophils # 2.9 K/mm3 (1.8-7.8); Neutrophils % 59.3 % (37.0-80.0); Platelet Count 240 K/mm3 (142-424); Red Blood Count 4.66 M/mm3 (4.20-5.40); Red Cell Distribution Width 14.1 % (11.5-17.5)
[2019-05-27 09:41] LABS: Creatinine,Urine Random 277 mg/dL (20-320); Total Protein,Urine Random 84.3 mg/dL (0.0-11.9)
[2019-05-27 10:09] LABS: Albumin Level 3.9 gm/dL (3.4-5.0); Anion Gap 9.8 mEq/L (5-15); Blood Urea Nitrogen 16 mg/dL (7-18); Calcium 9.6 mg/dL (8.5-10.1); Carbon Dioxide 32 mmol/L (21.0-32.0); Chloride 105 mmol/L (98-107); Creatinine,Serum 1.28 mg/dL (0.55-1.02); Estimated Glomerular Filt Rate 41 ml/min (>60); GFR (African American) 49 ML/MIN (>60); Glucose 119 mg/dL (74-106); Phosphorous 4.1 mg/dL (2.4-4.9); Potassium 3.8 mmoL/L (3.5-5.1); Sodium 143 mmol/L (136-145)
[2019-05-28 08:42] LABS: Complement C3 112 mg/dL (82-167); Vitamin D 25 Hydroxy 53.3 ng/mL (30.0-100.0)
[2019-05-30 08:06] LABS: Microalbumin, Urine 40.2 ug/mL (Not Estab.)
== END ==
PROVIDERS: Visit Provider Internal Medicine Nephrology
DX: N18.2 Chronic kidney disease, stage 2 (mild) (principal)
CPT/HCPCS: 36415; 80069; 82043; 82570; 82652; 84155; 85025; 86161

== ENCOUNTER → 2019-06-05 12:07 | Outpatient (POV) | payer MEDICARE, SELFPAY | PROVIDERS: Visit Provider Internal Medicine Nephrology | DX: Z00.00 Encounter for general adult medical examination without abnormal findings (principal) ==

== ENCOUNTER → 2019-06-07 10:47 | Outpatient (CLI) | payer MEDICARE, SELFPAY ==
--- NOTE | 2019-06-07 10:50 | MM_ITS ---
MM Dig screening mamm BI w/CAD ORDERING PHYSICIAN : Silvio Marsh MD PATIENT AGE: 74 years GENDER: Female COMPARISON: May 10, 2018 & November 2012 & April 2015 from this facility. Outside studies from [facility] June 2010.. &. July 2008 & June 2007 INDICATION: . No hormones. No new complaints. Routine screening mammogram the previous screening May 2018. Patient return for spot views June 2018 and and was to come back for a 6 month follow-up but did not. Rather returns now the annual follow-up Previous benign excisional biopsy left breast Family history. Maternal cousin with breast cancer age 28 TECHNIQUE: Standard CC and MLO images were obtained. R2 CAD reviewed. FINDINGS: Moderate heterogeneous breast pattern/, & density. No significant new findings. Multiple Prior films are quite helpful. Scattered benign-appearing calcifications bilaterally. These are mainly benign skin calcifications bilateral. RIGHT BREAST: No new areas of concern on the right. LEFT BREAST:No new findings of significant concern The asymmetric area of density medial breast has been present since studies dating back to 2007,& 2012. & 2014 cc views. This likely catheter with density slightly towards the superior breast on MLO view. Adequate believe this is similar since 2006 2007 & 2009 as well . Follow-up in one year adequate but should be encouraged/emphasized IMPRESSION: No new findings of significant concern. Follow-up in one year recommended; & should be emphasized and encouraged . Moderate dense heterogeneous breast; overall similar appearance to previous studies. BI-RADS Category: 2 Benign Finding(s) RECOMMENDED FOLLOW-UP: 1YR 1 YEAR FOLLOW-UP (A letter has been sent to the patient regarding results of the study.)
== END ==
PROVIDERS: PCP Internal Medicine Adolescent Medicine; Visit Provider Internal Medicine Adolescent Medicine
DX: Z12.31 Encounter for screening mammogram for malignant neoplasm of breast (principal)
CPT/HCPCS: 77067

== ENCOUNTER → 2019-08-05 11:56 | Outpatient (CLI) | payer MEDICARE, SELFPAY ==
[2019-08-05 12:17] LABS: Basophils % 0.1 % (0.1-2.0); Eosinophils % 0.3 % (0.1-12.0); Hematocrit 40.3 % (37.0-47.0); Hemoglobin 12.6 g/dL (12.2-16.2); Lymphocytes # 0.8 K/mm3 (0.7-4.5); Lymphocytes % 6.6 % (10-50); Mean Corpuscular HGB Conc 31.1 g/dL (31.8-35.4); Mean Corpuscular Hemoglobin 26.7 pg (27.0-31.2); Mean Corpuscular Volume 85.7 fl (81-99); Mean Platelet Volume 7.7 fl (7.4-10.4); Monocytes % 8.1 % (1.7-9.3); Neutrophils # 10.1 K/mm3 (1.8-7.8); Neutrophils % 84.8 % (37.0-80.0); Platelet Count 290 K/mm3 (142-424); Red Blood Count 4.71 M/mm3 (4.20-5.40); Red Cell Distribution Width 14.3 % (11.5-17.5); White Blood Count 11.9 K/mm3 (4.8-10.8)
[2019-08-05 14:20] LABS: Alanine Aminotransferase 36 U/L (12-78); Albumin Level 3.7 gm/dL (3.4-5.0); Albumin/Globulin Ratio 1.3 (1.1-1.8); Alkaline Phosphatase 60 U/L (46-116); Anion Gap 13.3 mEq/L (5-15); Aspartate Amino Transferase 10 U/L (15-37); Bilirubin,Total 0.9 mg/dL (0.2-1.0); Blood Urea Nitrogen 32 mg/dL (7-18); Calcium 9.2 mg/dL (8.5-10.1); Carbon Dioxide 27 mmol/L (21.0-32.0); Chloride 97 mmol/L (98-107); Chol/HDL Ratio 3.2 (1-3.5); Cholesterol 188 mg/dL (140-200); Creatinine,Serum 1.19 mg/dL (0.55-1.02); Estimated Glomerular Filt Rate 44 ml/min (>60); GFR (African American) 54 ML/MIN (>60); Globulin 2.9 gm/dl (1.3-3.2); Glucose 260 mg/dL (74-106); HDL Cholesterol 59 mg/dL (29-89); LDL Cholesterol 104 mg/dL (0-130); Potassium 4.3 mmoL/L (3.5-5.1); Sodium 133 mmol/L (136-145); Total Protein,Serum 6.6 gm/dL (6.4-8.2); Triglycerides 126 mg/dL (30-200); VLDL Cholesterol 25 mg/dL (0-40)
[2019-08-05 16:38] LABS: Erythrocyte Sedimentation Rate 12 mm/hr (0-30)
== END ==
PROVIDERS: Visit Provider Internal Medicine Adolescent Medicine
DX: E78.5 Hyperlipidemia, unspecified (principal); I25.10 Atherosclerotic heart disease of native coronary artery without angina pectoris; M32.9 Systemic lupus erythematosus, unspecified
CPT/HCPCS: 36415; 80053; 80061; 85025; 85651

== ENCOUNTER → 2019-09-10 13:11 | Outpatient (CLI) | payer MEDICARE, SELFPAY ==
[2019-09-10 14:15] LABS: Basophils % 0.5 % (0.1-2.0); Eosinophils # 0.1 K/mm3 (0.0-0.4); Hematocrit 36.3 % (37.0-47.0); Hemoglobin 11.8 g/dL (12.2-16.2); Lymphocytes # 1.6 K/mm3 (0.7-4.5); Lymphocytes % 22.2 % (10-50); Mean Corpuscular HGB Conc 32.6 g/dL (31.8-35.4); Mean Corpuscular Hemoglobin 28.4 pg (27.0-31.2); Mean Corpuscular Volume 87.2 fl (81-99); Mean Platelet Volume 7.2 fl (7.4-10.4); Monocytes # 0.4 K/mm3 (0.1-1.0); Monocytes % 6.3 % (1.7-9.3); Neutrophils # 4.9 K/mm3 (1.8-7.8); Neutrophils % 70.1 % (37.0-80.0); Platelet Count 242 K/mm3 (142-424); Red Blood Count 4.16 M/mm3 (4.20-5.40); Red Cell Distribution Width 14.8 % (11.5-17.5)
[2019-09-10 14:40] LABS: Alanine Aminotransferase 30 U/L (12-78); Albumin Level 3.3 gm/dL (3.4-5.0); Albumin/Globulin Ratio 1.3 (1.1-1.8); Alkaline Phosphatase 56 U/L (46-116); Aspartate Amino Transferase 14 U/L (15-37); Bilirubin,Total 0.6 mg/dL (0.2-1.0); Blood Urea Nitrogen 19 mg/dL (7-18); Calcium 9.1 mg/dL (8.5-10.1); Carbon Dioxide 25 mmol/L (21.0-32.0); Chloride 104 mmol/L (98-107); Creatinine,Serum 1.07 mg/dL (0.55-1.02); Estimated Glomerular Filt Rate 50 ml/min (>60); GFR (African American) 60 ML/MIN (>60); Globulin 2.6 gm/dl (1.3-3.2); Glucose 151 mg/dL (74-106); Sodium 139 mmol/L (136-145); Total Protein,Serum 5.9 gm/dL (6.4-8.2)
[2019-09-10 17:58] LABS: Erythrocyte Sedimentation Rate 5 mm/hr (0-30)
== END ==
PROVIDERS: Visit Provider Internal Medicine Adolescent Medicine
DX: L29.9 Pruritus, unspecified (principal)
CPT/HCPCS: 36415; 80053; 85025; 85651

== ENCOUNTER → 2020-01-31 15:14 | Outpatient (CLI) | payer MEDICARE, SELFPAY ==
[2020-01-31 15:52] LABS: Basophils # 0.1 K/mm3 (0-0.2); Basophils % 1.2 % (0.1-2.0); Eosinophils # 0.2 K/mm3 (0.0-0.4); Eosinophils % 2.9 % (0.1-12.0); Hematocrit 35.1 % (37.0-47.0); Hemoglobin 11.4 g/dL (12.2-16.2); Lymphocytes # 1.9 K/mm3 (0.7-4.5); Lymphocytes % 28.8 % (10-50); Mean Corpuscular HGB Conc 32.4 g/dL (31.8-35.4); Mean Corpuscular Hemoglobin 27.3 pg (27.0-31.2); Mean Corpuscular Volume 84.4 fl (81-99); Mean Platelet Volume 7.4 fl (7.4-10.4); Monocytes # 0.6 K/mm3 (0.1-1.0); Monocytes % 8.9 % (1.7-9.3); Neutrophils # 3.8 K/mm3 (1.8-7.8); Neutrophils % 58.3 % (37.0-80.0); Platelet Count 224 K/mm3 (142-424); Red Blood Count 4.16 M/mm3 (4.20-5.40); Red Cell Distribution Width 12.8 % (11.5-17.5); White Blood Count 6.6 K/mm3 (4.8-10.8)
[2020-01-31 16:47] LABS: Chloride 101 mmol/L (98-107)
[2020-01-31 16:48] LABS: Potassium 3.9 mmoL/L (3.5-5.1); Sodium 135 mmol/L (136-145)
[2020-01-31 16:51] LABS: Anion Gap 13.9 mEq/L (5-15); Blood Urea Nitrogen 22 mg/dl (7-17); Calcium 9.6 mg/dl (8.4-10.2); Carbon Dioxide 24 mmol/L (22.0-30.0); Estimated Glomerular Filt Rate 37 ml/min (>60); GFR (African American) 44 ML/MIN (>60); Glucose 82 mg/dl (74-100)
== END ==
PROVIDERS: Visit Provider Internal Medicine Adolescent Medicine
DX: N18.3 Chronic kidney disease, stage 3 (moderate) (principal); J81.1 Chronic pulmonary edema
CPT/HCPCS: 36415; 80048; 85025